=== PATIENT | male | born 1965 | race Caucasian/White ===

== ENCOUNTER 2016-03-27 18:30 | Inpatient (IN) | payer BC ==
[~2016-03-27] VITALS: Ht 190.5 cm; Wt 149.5 kg
[2016-03-27 19:30] LABS: BASOPHILS 0.1 % (0.0-2.0); EOSINOPHILS 1.1 % (0-7); HEMATOCRIT 40.8 % (42.0-54.0); HEMOGLOBIN 13.5 g/dL (13.5-17.5); IMMATURE GRANULOCYTES 0.2 % (0-5); LYMPHOCYTES 19.4 % (15-50); MCH 28.5 pg (26.0-34.0); MCHC 33.1 g/dL (31.0-37.0); MCV 86.1 fL (80.0-100.0); MEAN PLATELET VOLUME 8.7 fL (7.4-10.4); MONOCYTES 8.5 % (2-11); NEUTROPHILS 70.7 % (40-80); PLATELET COUNT 218 10x3/uL (130-400); RBC 4.74 10x6/uL (4.20-6.10); RDW 13.8 % (11.5-14.5); WBC 8.9 10x3/uL (4.8-10.8)
[2016-03-27 19:40] LABS: APTT 23.9 SECONDS (22.8-39.4); INR 1.04 (0.85-1.17); PROTIME 13.5 SECONDS (11.6-15.0)
[2016-03-27 19:43] LABS: HEMOGLOBIN A1C 6.5 % (4.8-6.0)
[2016-03-27 19:54] LABS: ALBUMIN 3.2 g/dL (3.4-5.0); ALKALINE PHOSPHATASE 58 U/L (46-116); ALT (SGPT) 33 U/L (10-68); CALC OSMOLALITY 278 mosm/kg (275-300); CALCIUM 9.5 mg/dL (8.5-10.1); CARBON DIOXIDE 27.7 mmol/L (21.0-32.0); CHLORIDE - SERUM 99 mmol/L (98-107); CREATININE - SERUM 1.7 mg/dL (0.6-1.3); GLUCOSE 95 mg/dL (74-106); POTASSIUM - SERUM 3.8 mmol/L (3.5-5.1); PROTEIN - SERUM 7.8 g/dL (6.4-8.2); SODIUM 138 mmol/L (136-145); UREA NITROGEN 20 mg/dL (7-18); eGFR NON AFRICAN AMERICAN 45 mL/min (90-120)
[2016-03-27 20:12] LABS: C-REACTIVE PROTEIN 1.9 mg/dL (0.0-0.9); CKMB 1.5 U/L (0.0-3.6); CREATINE KINASE 292 UL (21-232)
[2016-03-27] MEDS ORDERED: HYZAAR 100-25 T1 TAB PO (21:08)
[2016-03-27] MEDS ORDERED: NORVASC10 MG PO (21:08)
[2016-03-27] MEDS ORDERED: IBUPROFEN400 MG PO (21:15)
[2016-03-27] MEDS ORDERED: INDOCIN-SR75 MG PO (21:15)
--- NOTE | 2016-03-27 21:18 | NUR ---
RECEIVED PT TO FLOOR FROM ER VIA WHEELCHAIR. LEFT 2ND TOE REDNESS/SWELLING WITH QUARTER SIZE ULCER/WOUND WITH SMALL SEROSANG DRAINAGE. LLE +2 PITTING. BOTTOM OF RIGHT FOOT HAS LACERATION APPROX 1.5 LONG IN CALLOUS SKIN REDNESS AND SWELLING PRESENT. SCANT SEROSANG DRAINAGE OCCASIONAL FROM LACERATION. RLE +1 PITTING. ELEVATED FEET ON PILLOW. HISTORY AND HOME MEDS REVIEWED. COMPLETE ASSESSMENT PER FLOWSHEET.
[2016-03-28 02:46] VITALS: BP 143/92; BMI 41.2
[2016-03-28 05:42] LABS: BASOPHILS 0.2 % (0.0-2.0); EOSINOPHILS 2.7 % (0-7); HEMOGLOBIN 13.2 g/dL (13.5-17.5); IMMATURE GRANULOCYTES 0.2 % (0-5); MCH 28.4 pg (26.0-34.0); MCV 86.2 fL (80.0-100.0); MEAN PLATELET VOLUME 8.9 fL (7.4-10.4); MONOCYTES 11.1 % (2-11); NEUTROPHILS 63.8 % (40-80); PLATELET COUNT 203 10x3/uL (130-400); RBC 4.64 10x6/uL (4.20-6.10); RDW 13.9 % (11.5-14.5)
[2016-03-28 05:56] LABS: WBC 5.9 10x3/uL (4.8-10.8)
[2016-03-28 06:19] LABS: ANION GAP 11.9 mmol/L (8-16); CALCIUM 8.8 mg/dL (8.5-10.1); CARBON DIOXIDE 29.1 mmol/L (21.0-32.0)
[2016-03-28 06:31] LABS: CREATININE - SERUM 1.2 mg/dL (0.6-1.3)
[2016-03-28 06:57] LABS: ERYTHROCYTE SEDIMENTATION RATE 49 mm/hr (0-20)
--- NOTE | 2016-03-28 07:30 | NUR ---
REPORT RECEIVED FROM LOW VISION THERAPIST NURSE. CALL LIGHT IN REACH.
[2016-03-28 08:04] VITALS: BP 170/92
--- NOTE | 2016-03-28 09:33 | NUR ---
Patient Name: TRAY COVARRUBIAS Admission Status: ER Accout number: [id number] Admission Date: 03-27-2016 : 1965 Admission Diagnosis: Attending: THADDEUS Current LOS: 1 Anticipated DC Date: 03-31-2016 Planned Disposition: Home Primary Insurance: [employer] O Discharge Planning Comments: CM MET WITH PATIENT REGARDING D/C NEEDS AND PLANS. (PEGGY) AT BEDSIDE STATED SHE WILL DRIVE HIM HOME AT DISCHARGE. PATIENT STATED THEY HAVE A RAMP TO ENTER HOME AND NO STAIRS INSIDE. PATIENT IS INDEPENDENT WITH HIS CARE AND HAS NO DME AT HOME. PATIENTS PCP IS DR. MEHTA AND PHARMACY IS [facility] ON [address]. PATIENT DENIES NEEDS FOR HOME HEALTH. CM WILL CONTINUE TO FOLLOW PATIENT WITH D/C NEEDS AND PLANS. PCP DR. TYSON ALMANZAR ON [facility] [phone] PEGGY () [phone] Punch Operator: Lois Chavez Is the patient Alert and Oriented? Yes 0 * How many steps to enter\exit or inside your home? RAMP 0 * PCP DR. MEHTA 0 * Pharmacy [facility] ON [address] 0 * Preadmission Environment Home with Family 0 * ADLs Independent 0 * Equipment None 0 * List name and contact numbers for known caregivers / representatives who currently or will assist patient after discharge: PEGGY () [phone] * Community resources currently utilized None 0 * Additional services required to return to the preadmission environment? Yes 0 * Can the patient safely return to the preadmission environment? Yes 0 * Has this patient been hospitalized within the prior 30 days at any hospital? No 0 Grand Total: 0
--- NOTE | 2016-03-28 09:40 | NUR ---
ASSESSMENT COMPLETED. AM MEDS ADMINISTERED PER MAYTE GIL. CALL LIGHT IN REACH. IN ROOM. WILL CONTINEU WITH PLAN OF CARE.
--- NOTE | 2016-03-28 10:23 | NUR ---
[place] AND [place] PO. FAMILY IN ROOM. CALL LIGHT IN REACH.
--- NOTE | 2016-03-28 11:53 | NUR ---
WATCHING TV QUIETLY AT PRESENT DENIES ANY NEEDS IV PATENT IN RFA.
[2016-03-28 12:35] VITALS: BP 160/90
--- NOTE | 2016-03-28 13:11 | HP ---
PATIENT: TRAY COVARRUBIAS MEDICAL RECORD: [id number] ACCOUNT: [id number] LOCATION:D.MS [address] : [birth year] ADMISSION DATE: 03/27/16 HISTORY AND PHYSICAL EXAMINATION DATE OF ADMISSION: 03/27/2016 CHIEF COMPLAINT: Pain, swelling and redness to the left second toe. HISTORY OF PRESENT ILLNESS: This is a 50-year-old white male who states he stepped on something in his yard 2 days ago and he was barefoot. He does not know what he stepped on. He states he has peripheral neuropathy of his feet. He was soaking it in vinegar and Epsom salt. 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 He presented to the ER and he has a large wound on the bottom of his left second toe. The toe was swollen and red. He is admitted for IV antibiotics and further treatment of this. PAST MEDICAL AND SURGICAL HISTORY: Hypertension, history of low back pain. He has a history of peripheral neuropathy, history of gout. He was admitted to the hospital in August 2012 with cellulitis and a large open wound to the left great toe. At that time, he was treated with IV antibiotics and deep I&D by Dr. Kearney and that toe actually healed up. His hemoglobin A1c then was 5.9. He is followed by [facility]RI[facility] at [facility], and he sees her about once a year. HOME MEDICATIONS: Amlodipine 10 mg a day, losartan/HCTZ 100/25 once a day, takes ibuprofen as needed and indomethacin twice a day as needed for pains. ALLERGIES: None known. SOCIAL HISTORY: He is and works as a basket turner. HABITS: He smokes less than a pack of cigarettes in a week's time. He drinks about 18 beers in a week's time. FAMILY HISTORY: Father at 71. He had heart disease, hypertension, diabetes. Mother is alive with hypertension, sister is alive with hypertension. REVIEW OF SYSTEMS: GENERAL: No major weight changes. He is obese. HEENT: No particular sinus or allergy problems. RESPIRATORY: No diagnosis of emphysema or asthma. CARDIAC: No history of coronary artery disease. GASTROINTESTINAL: Denies diarrhea, constipation or reflux. GENITOURINARY: No significant problems there. MUSCULOSKELETAL: He has various joint aches and pains in his back, elbows and knees. NEUROLOGIC: He has no seizures or migraine headaches. She does have peripheral neuropathy. PSYCHIATRIC: No depression or melancholia. PHYSICAL EXAMINATION: VITAL SIGNS: Today in the ER, he is afebrile. Vital signs were stable. HEENT: Grossly within normal limits. HISTORY AND PHYSICAL [id number] TRAY COVARRUBIAS NECK: Supple. No JVD or bruit. HEART: Regular rate and rhythm without murmur. LUNGS: Fairly clear. ABDOMEN: Obese, nontender. EXTREMITIES: Trace to 1+ lower extremity edema. Examination of the left foot second toe shows a large 1.5 cm open wound at the bottom of the distal second toe. The second toe is erythematous and edematous. He really has no pain there due to neuropathy. Dorsalis pedis pulse is 2+. LABORATORY DATA: CBC with a white count of 8900, hemoglobin 13.5, hematocrit 40.8. Basic metabolic panel is all okay. LFTs were okay. INR 1.04. Hemoglobin A1c is elevated at 6.5 indicating he does have underlying diabetes. CK 292, CK-MB 1.5. C-reactive protein 1.5. ASSESSMENT: 1. Cellulitis with open wound. 2. Diabetes, new diagnosis. 3. Hypertension. 4. Peripheral neuropathy. PLAN: IV antibiotics. General surgery has been consulted from the ER. Other tests and procedures as warranted. TRANSINT:[id number] Voice Confirmation ID: [id number] DOCUMENT ID: [id number] MEERA CASTELLON MD at 1311 CC: [id number] DICTATION DATE: 03/27/162314 AUTOMATIC PATTERN EDGER: 03/27/16 2357 ADM IN [place] [id number] [place] [address]
--- NOTE | 2016-03-28 13:30 | NUR ---
AM MEDS CHANGED TO 0600 PER PATIENT REQUEST.
--- NOTE | 2016-03-28 15:39 | NUR ---
TOE CULTURED AND SAMPLE SEN TO LAB.
[2016-03-28 15:53] VITALS: BP 173/87
--- NOTE | 2016-03-28 17:59 | NUR ---
VANCOMYCIN IVPB PER ORDER. CALL LIGHT IN REACH.
--- NOTE | 2016-03-28 18:01 | NUR ---
NO CHANGES IN INITIAL ASSESSMENT. CALL LIGHT IN REACH. STILL REFUSES SCDs. WILL CONTINUE WITH PLAN OF CARE.
[2016-03-28 20:19] VITALS: BP 132/86
--- NOTE | 2016-03-28 21:09 | NUR ---
ASSESSMENT COMPLETED PER MAR, NO ACUTE DISTRESS NOTED, MEDS GIVEN PER MAR, YANG WELL, DENIES FURTHER NEEDS AT THIS TIME, SR'S UP X2, CL IN REACH
--- NOTE | 2016-03-28 23:54 | NUR ---
RESTING WITH EYES CLOSED, SNORING RESP, NO DISTRESS NOTED, CL IN REACH
[2016-03-29 05:27] LABS: BASOPHILS 0.2 % (0.0-2.0); EOSINOPHILS 3.4 % (0-7); HEMATOCRIT 40.2 % (42.0-54.0); HEMOGLOBIN 13.3 g/dL (13.5-17.5); IMMATURE GRANULOCYTES 0.2 % (0-5); LYMPHOCYTES 21.2 % (15-50); MCH 28.5 pg (26.0-34.0); MCHC 33.1 g/dL (31.0-37.0); MCV 86.1 fL (80.0-100.0); MEAN PLATELET VOLUME 8.8 fL (7.4-10.4); PLATELET COUNT 197 10x3/uL (130-400); RBC 4.67 10x6/uL (4.20-6.10); RDW 13.8 % (11.5-14.5); WBC 5.3 10x3/uL (4.8-10.8)
[2016-03-29 05:41] LABS: CALC OSMOLALITY 278 mosm/kg (275-300); CALCIUM 9.8 mg/dL (8.5-10.1); CARBON DIOXIDE 31.4 mmol/L (21.0-32.0); CHLORIDE - SERUM 101 mmol/L (98-107); CREATININE - SERUM 1.1 mg/dL (0.6-1.3); GLUCOSE 115 mg/dL (74-106); POTASSIUM - SERUM 4.3 mmol/L (3.5-5.1); SODIUM 138 mmol/L (136-145); UREA NITROGEN 18 mg/dL (7-18); eGFR NON AFRICAN AMERICAN 75 mL/min (90-120)
[2016-03-29 10:06] VITALS: BP 147/87
--- NOTE | 2016-03-29 12:13 | NUR ---
FAMILY AT SIDE.PT REMAINS WITHOUT DISTRESS.CALL LIGHT IN REACH
[2016-03-29 13:01] VITALS: BP 124/73
--- NOTE | 2016-03-29 14:24 | NUR ---
FAMILY AT BEDSIDE.PT WITHOUT DISTRESS.TELEMETRY DCD,PT DECLINED.DENIES NEEDS.CALL LIGHT IN REACH
--- NOTE | 2016-03-29 16:48 | NUR ---
REMAINS WITHOUT DISTRESS.WITHOUT NEEDS.MONITOR
--- NOTE | 2016-03-29 18:21 | NUR ---
REMAINS WITHOUT CHANGE.CONT PLAN OF CARE
[2016-03-29 18:48] VITALS: BP 150/74
--- NOTE | 2016-03-29 20:13 | NUR ---
ASSESSMENT COMPLETED, NO ACUTE DISTRESS NOTED, MEDS GIVEN PER MAR, YANG WELL, DENIES NEEDS, SR'S UP X2, CL IN REACH, WILL MONITOR
[2016-03-29 20:28] VITALS: BP 125/76
--- NOTE | 2016-03-29 23:20 | NUR ---
RESTING WITH EYES CLOSED, SNORING RESP, NO DISTRESS NOTED, SR'S UP X2, CL IN REACH
--- NOTE | 2016-03-30 03:24 | NUR ---
RESTING WITH EYES CLOSED, RESP WITH EASE, NO DISTRESS NOTED, CL IN REACH
--- NOTE | 2016-03-30 05:33 | NUR ---
IV TO R FOREARM INFILTRATED, DC'D WITH CATH INTACT, RESITED IN L HAND WITH 20 G X1 ATTEMPT, YANG WELL, CL IN REACH
[2016-03-30 05:34] LABS: BASOPHILS 0.4 % (0.0-2.0); EOSINOPHILS 3.8 % (0-7); HEMATOCRIT 40.4 % (42.0-54.0); HEMOGLOBIN 13.2 g/dL (13.5-17.5); IMMATURE GRANULOCYTES 0.2 % (0-5); LYMPHOCYTES 23.9 % (15-50); MCH 28.2 pg (26.0-34.0); MCHC 32.7 g/dL (31.0-37.0); MCV 86.3 fL (80.0-100.0); MONOCYTES 11.6 % (2-11); NEUTROPHILS 60.1 % (40-80); PLATELET COUNT 209 10x3/uL (130-400); RBC 4.68 10x6/uL (4.20-6.10); RDW 13.8 % (11.5-14.5); WBC 5.6 10x3/uL (4.8-10.8)
[2016-03-30 05:55] LABS: ANION GAP 9.9 mmol/L (8-16); CALCIUM 8.8 mg/dL (8.5-10.1); CREATININE - SERUM 1.3 mg/dL (0.6-1.3); POTASSIUM - SERUM 3.9 mmol/L (3.5-5.1)
--- NOTE | 2016-03-30 07:30 | NUR ---
RECIEVED PT DURING WALKING ROUNDS. PT RESTING COMFORTABLY IN BED WITH NO COMPLAINTS OF PAIN OR DISCOMFORT AT THIS TIME. ASSESSMENT DONE PER FLOWSHEET. BED IN LOW POSITION AND CALL LIGHT WITHIN REACH. WILL CONTINUE TO MONITOR.
[2016-03-30 08:14] VITALS: BP 154/86
--- NOTE | 2016-03-30 08:39 | NUR ---
NEWS PAPER TO PATIENT.HE IS WITHOUT DISTRESS.CALL LIGHT IN REACH
--- NOTE | 2016-03-30 09:35 | NUR ---
SPOKE WITH DR. CAMPA ABOUT DRESSING LESIONS ON PTS FEET. WILL DRESS WHEN MEDICATION IS AVAIABLE FROM PHARMACY. BED IN LOW POSITION AND CALL LIGHT WITHIN REACH.
--- NOTE | 2016-03-30 11:25 | NUR ---
DRESSING PLACED ON BALL OF RIGHT FOOT AND LEFT SECOND TOE. BED IN LOW POSITION AND CALL LIGHT WITHIN REACH. WILL CONTINUE TO MONITOR.
[2016-03-30 12:12] VITALS: BP 143/81
[2016-03-30 15:40] VITALS: BP 139/85
--- NOTE | 2016-03-30 19:51 | NUR ---
ASSESSMENT COMPLETED, NO ACUTE DISTRESS NOTED, DENIES NEEDS AT THIS TIME, CL IN REACH
--- NOTE | 2016-03-30 19:52 | NUR ---
DGS TO 2ND TOE ON L FOOT AND HEEL ON R FOOT CHANGED, BOTH CLEANSED WITH WOUND CLEANSER, NEOSPORIN APPLIED, COVERED WITH GAUZE, SECURED WITH TAPE, YANG WELL
[2016-03-30 20:28] VITALS: BP 142/84
--- NOTE | 2016-03-30 21:20 | NUR ---
MEDS GIVEN PER MAR, YANG WELL, DENIES NEEDS , CL IN REACH
--- NOTE | 2016-03-30 23:52 | NUR ---
RESTING WITH EYES CLOSED, SNORING RESP, NO DISTRESS NOTED, CL IN REACH
--- NOTE | 2016-03-31 05:24 | NUR ---
MEDS GIVEN PER MAR, YANG WELL, DENIES PAIN OR NEEDS, CL IN REACH
[2016-03-31 06:22] LABS: BASOPHILS 0.2 % (0.0-2.0); EOSINOPHILS 2.9 % (0-7); HEMATOCRIT 41.5 % (42.0-54.0); HEMOGLOBIN 13.4 g/dL (13.5-17.5); IMMATURE GRANULOCYTES 0.2 % (0-5); MCHC 32.3 g/dL (31.0-37.0); MCV 86.8 fL (80.0-100.0); MEAN PLATELET VOLUME 8.9 fL (7.4-10.4); MONOCYTES 12.2 % (2-11); NEUTROPHILS 59.5 % (40-80); PLATELET COUNT 197 10x3/uL (130-400); RBC 4.78 10x6/uL (4.20-6.10); RDW 13.5 % (11.5-14.5); WBC 5.5 10x3/uL (4.8-10.8)
[2016-03-31 06:57] LABS: ANION GAP 10.8 mmol/L (8-16); CALCIUM 9.3 mg/dL (8.5-10.1); CARBON DIOXIDE 32.4 mmol/L (21.0-32.0); CREATININE - SERUM 1.2 mg/dL (0.6-1.3); POTASSIUM - SERUM 4.2 mmol/L (3.5-5.1)
--- NOTE | 2016-03-31 07:20 | NUR ---
WALKING ROUNDS,WITHOUT DISTRESS.CALL LIGHT IN REACH
--- NOTE | 2016-03-31 09:00 | NUR ---
ASSESSMENT PER FLOW SHEET.PT WITHOUT DISRESS.CALL LIGHT IN REACH
[2016-03-31 09:23] VITALS: BP 150/100
[2016-03-31 12:53] VITALS: Ht 190.5 cm; Wt 149.5 kg
[2016-03-31 12:57] VITALS: BP 144/84
[2016-03-31] MEDS ORDERED: VIBRAMYCIN 100100 MG PO (13:39)
--- NOTE | 2016-03-31 14:28 | NUR ---
NUTRITION MONITORING & EVAL PROVIDED PT WITH BASIC DIABETIC DIET INFORMATION. STRESSED NO CONCENTRATED SWEETS. RD FOLLOWING
--- NOTE | 2016-03-31 15:32 | NUR ---
WOUND CARE CONSULT: PT HAS WOUND ON HIS LEFT FOOT PAD OF #2 TOE. IT MEASURES 3CM X 3CM X 0.5CM X 0.5CM FROM 12-12 OCLOCK. PERIWOUND IS THICK WITH CALLOUS. WOUND BED IS PALE PINK, MOIST. CENTER IS OPEN AND BONE IS EXPOSED. PT STATES HE IS A "BORDER-LINE" DIABETIC WITH NEUROPATHY OF FEET. CLEANED WELL AND APPLIED MAXORB AG TO WOUND BED. COVERED TO PROTECT AND SECURE WITH 4X4S. SPOKE WITH DR. CASTELLON ABOUT REFERRAL TO [facility]. APPT WILL BE MADE ON DISCHARGE. PT ALSO HAS A WOUND ON RIGHT PLANTAR FOOT MEASURING 1CM X 4CM X ESCHAR.. HE STATES IT "SPLITS" OCCASIONALLY. RECOMMEND LEAVING OPEN TO AIR AT THIS TIME UNTIL HE CAN BE SEEN BY WOUND CLINIC. INSTRUCTED PT ON WOUND CARE/SKIN CARE AND DISCUSSED GOING TO WOUND CLINIC ON DISCHARGE. HE VOICED UNDERSTANDING.
--- NOTE | 2016-03-31 15:51 | NUR ---
CM REASSESSMENT NOTE: PATIENTS IS DRIVING HIM HOME TODAY AT DISCHARGE. PATIENT HAS DENIED NEEDS FOR HOME HEALTH.
--- NOTE | 2016-03-31 15:52 | NUR ---
IV DCD WITH CATH INTACT.
[2016-03-31 16:10] VITALS: BP 136/82
--- NOTE | 2016-03-31 17:15 | NUR ---
DISCHARGE INSTRUCTIONS,STATES UNDERSTANDING. HERE TO DRY CLEANING COUNTER CLERK.LEFT UNIT IN WHEELCHAIR WITH AIR AND WATER TESTER FOR TRANSPORT HOME
== END 2016-03-31 17:15 | disposition home or self-care (01) | DRG 605 ==
LOC: D.ER 18:30 → D.MS 20:07 → D.SDCHOLD 03-28 15:34 → D.MS 03-28 15:34
PROVIDERS: Emergency Medicine; ADMIT Family Medicine
DX: S91.119A Laceration without foreign body of unspecified toe without damage to nail, initial encounter (principal); F17.203 Nicotine dependence unspecified, with withdrawal; L03.032 Cellulitis of left toe; E11.42 Type 2 diabetes mellitus with diabetic polyneuropathy; I10 Essential (primary) hypertension; X58.XXXA Exposure to other specified factors, initial encounter

== ENCOUNTER → 2016-05-28 12:48 | Outpatient (CLI) | payer BC ==
[2016-03-31 12:53] VITALS: BMI 41.1
[~2016-05-28 12:48] MED LIST: HYZAAR 100-25 T1 TAB PO; IBUPROFEN400 MG PO; INDOCIN-SR75 MG PO; NORVASC10 MG PO; VIBRAMYCIN 100100 MG PO
== END | disposition home or self-care (01) ==
LOC: D.LABREF 12:48
DX: L97.529 Non-pressure chronic ulcer of other part of left foot with unspecified severity (principal)

== ENCOUNTER 2017-06-03 16:51 | Emergency (ER) | payer BC ==
[2016-03-31 12:53] VITALS: BMI 41.1
== END 2017-06-03 22:15 | disposition home or self-care (01) ==
LOC: D.ER 16:51
DX: L03.032 Cellulitis of left toe (principal); L97.529 Non-pressure chronic ulcer of other part of left foot with unspecified severity; I10 Essential (primary) hypertension; F17.200 Nicotine dependence, unspecified, uncomplicated

== ENCOUNTER 2019-02-18 17:45 | Inpatient (IN) | payer OTHER ==
[~2019-02-18] VITALS: Ht 190.5 cm; Wt 152.4 kg
[2019-02-18 18:15] VITALS: BP 147/80
--- NOTE | 2019-02-18 18:31 | NUR ---
PT HAS 101.0 FEVER. PRN TYLENOL GIVEN AT THIS TIME.
--- NOTE | 2019-02-18 19:15 | NUR ---
PATIENT ALERT AND ORIENTED WHEN ENTERING THE ROOM. PATIENT HAS SEVERAL FAMILY MEMBERS AT BEDSIDE. SPOKE AT GREAT LENGTH WITH PATIENT ABOUT PODIATRY AND THAT DR. LONGORIA HAS BEEN CONSULTED ON THE CASE. PATIENT VERBALIZES UNDERSTANDING. STATES PAIN IS TOLERABLE AT THIS POINT. PATIENT APPEARS TO START SWEATING DURING ASSESSMENT. TEMPERATURE THAT WAS ASSESSED ON PRIOR SHIFT AND TYLENOL ADMINSTERED, IS STARTING TO BREAK. PATIENT HAS BILATERAL FOOT WOUNDS IN THE LOWER EXTREMETIES THOUGH THE LEFT AND FOOT PRESENT WITH REDNESS AND SWELLING. AN OPEN WOUND TO THE BOTTOM OF THE GREAT TOE NOTED ON THE LEFT FOOT. THE RIGHT FOOT HAS DARKENED AREA OF TISSUE ON GREAT TOE BUT IS NOT OPEN AT THIS TIME AND NO SWELLING OR REDNESS NOTED TO THE LEG. PATIENT STATES HE STILL AMBULATES BUT DID NOT GET OUT OF BED AT THIS TIME. PATIENT DOES NOT HAVE AN IV. DISCUSSED COMING UP ABX THERAPY WITH PATIENT. HE VERBALIZES UNDERSTANDING. DENIES FURTHER NEEDS AT THIS TIME. CALL LIGHT IN REACH. BED IS IN LOWEST POSITION. CPOC.
[2019-02-18 20:00] VITALS: BP 147/89
--- NOTE | 2019-02-18 20:10 | NUR ---
LEFT FOREARM IV. 20 G. X1 ATTEMPT.
[2019-02-18 20:46] VITALS: BP 147/80; BMI 42.0
[2019-02-18 23:57] VITALS: BP 177/93
--- NOTE | 2019-02-19 00:15 | NUR ---
PATIENT COMPLAINING OF PAIN IN LOWER EXTREMETIES NOT RELIEVED BY TYLENOL. PATIENT BLOOD PRESSURE INCREASING WELL. PAGED DR. CASTELLON.
[2019-02-19 00:33] LABS: APPEARANCE HAZY (CLEAR); BACTERIA NONE SEEN /hpf (NEGATIVE); BILIRUBIN NEGATIVE (NEGATIVE); COLOR YELLOW (YELLOW); GLUCOSE NEGATIVE (NEGATIVE); GRANULAR CAST OCC /lpf (NONE SEEN); KETONE NEGATIVE (NEGATIVE); MUCUS <1+ /lpf (NONE SEEN); NITRITE NEGATIVE (NEGATIVE); PROTEIN 1+ mg/dL (NEGATIVE); RED CELLS - URINE 0-5 /hpf (0-5); UROBILINOGEN NORMAL (NORMAL); WHITE CELLS - URINE 0-5 /hpf (NEGATIVE)
[2019-02-19 00:34] LABS: AMORPHOUS SEDIMENT <1+ /lpf (NONE SEEN)
--- NOTE | 2019-02-19 01:14 | NUR ---
RESTING COMFORTABLY AT THIS TIME WITH NO SIGNS OR SYMPTOMS OF DISTRESS NOTED. CALL LIGHT AND URINAL REMAIN IN REACH OF PATIENT. CPOC.
[2019-02-19 04:00] VITALS: BP 165/93
[2019-02-19 07:49] VITALS: BP 141/94
--- NOTE | 2019-02-19 07:50 | NUR ---
PT RESTING QUIETLY IN BED. RESP EVEN AND UNLABORED. PT REPORTS PAIN 10/10 AT THIS TIME. DISCUSSED NEXT TIME PAIN MEDICATION CAN BE ADMINISTERED PER MD ORDERS. PT VOICES UNDERSTANDING. SALINE LOC TO LEFT FOREARM. SITE WITHOUT REDNESS OR EDEMA. REDNESS AND EDEMA NOTED TO BILAT LOWER EXTREMITIES. DENIES FURTHER NEEDS AT THIS TIME. CL WITHIN REACH. ENCOURAGED TO CALL WITH NEEDS. CONTINUE POC
[2019-02-19 08:41] VITALS: Ht 190.5 cm; Wt 152.4 kg
[2019-02-19 12:00] VITALS: BP 142/82
[2019-02-19 16:11] VITALS: BP 144/81
--- NOTE | 2019-02-19 19:30 | NUR ---
PATIENT ALERT AND ORIENTED. REQUESTING PAIN MEDICATION AT THIS TIME. PATIENT ALSO DISCUSSED WITH THIS NURSE THAT DR. CASTELLON STATED HE WOULD BE STARTING AN ADDITIONAL ABX THIS SHIFT BUT NO ORDERS. PAGED DR. CASTELLON FOR ADVISING.
--- NOTE | 2019-02-19 19:45 | NUR ---
DR. CASTELLON RETURNED PAGE AND PROVIDED ORDERS.
[2019-02-19 20:00] VITALS: BP 138/69
--- NOTE | 2019-02-19 23:47 | HP ---
PATIENT: TRAY COVARRUBIAS MEDICAL RECORD: [id number] ACCOUNT: [id number] LOCATION:D.MS [address] : 63 ADMISSION DATE: 02/18/19 PCP: MEERA CASTELLON MD HISTORY AND PHYSICAL EXAMINATION DATE OF ADMISSION: 02/18/2019 CHIEF COMPLAINT: Fever, nausea, vomiting times 3 days, increased redness in the left lower extremity and a diabetic wound on both great toes. HISTORY OF PRESENT ILLNESS: This is a 53-year-old white male followed by Nhung Foy, nurse practitioner at [facility]. He has a past history of diabetes with actually good control with a hemoglobin A1c of 6.1 in the last couple of months. He is morbidly obese. He has severe peripheral neuropathy, he has had a long history of diabetic foot ulcers. He has been to Dr. Forrest. He has been to [facility] wound clinic. He has been to Dr. Kearney, but has not been seeing anybody in a couple of months. He has chronic lower extremity edema and again with neuropathy, cannot feel his feet and legs. He comes in today with above symptoms and cellulitis to the left lower extremity. He has a large ulcer on the bottom of his left great toe and an ulcer on the right great toe as well. In our office, his white blood cell count was 12,790. His BUN and creatinine were 12 and 1.12 respectively. Glucose was 104. With his symptoms, he is directly admitted for IV antibiotics and will ask ortho to see him about his wound on his toe to see if it needs anything further. PAST MEDICAL HISTORY: Hypertension, diabetes with peripheral neuropathy, gout, and morbid obesity. PAST MEDICAL AND SURGICAL HISTORY: He has had toe surgery back in 2013 for infections. DRUG ALLERGIES: None known. HOME MEDICATIONS: Allopurinol 300 mg once a day, metformin 500 mg once a day, amlodipine 10 mg once a day, losartan 100 mg once a day, metoprolol ER 25 once a day. He has been on hydrochlorothiazide in the past, but not right now. SOCIAL HISTORY: He is . 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 I am not sure if he is working right now or not. HABITS: He smokes a pack of cigarettes in a week's time. Denies alcohol or drug use. FAMILY HISTORY: Unknown. REVIEW OF SYSTEMS: GENERAL: He has morbid obesity, which has not changed anytime recently. HEENT: No particular sinus or allergy problems. RESPIRATORY: No history of emphysema. CARDIAC: No history of heart disease. GASTROINTESTINAL: He has heartburn. GENITOURINARY: No significant problems there. MUSCULOSKELETAL: Has low back pain. NEUROLOGIC: No migraines or seizures. HISTORY AND PHYSICAL [id number] TRAY COVARRUBIAS INTEGUMENT: Again he has had ulcers on his feet. PSYCHIATRIC: Denies depression or melancholia. PHYSICAL EXAMINATION: VITAL SIGNS: Temperature 100.9, pulse 117, respirations 17, blood pressure 147/89, O2 sat 94%. GENERAL: He is a morbidly obese white male. He does not appear to be in acute distress. HEENT: Grossly within normal limits. NECK: Supple. No JVD or bruit. HEART: Mild tachycardia. LUNGS: Fairly clear. ABDOMEN: Morbidly obese, soft, nontender. EXTREMITIES: He has 3+ lower extremity edema. He has erythema to his left knee. Examination of the foot shows a large open ulcer that is dry on the bottom of the great toe. A CBC done in our office showed a white count of 12,790, hemoglobin 12.6. Basic metabolic panel: Sodium 133, potassium 3.7, chloride 96, CO2 26.3, BUN 12, creatinine 1.12, glucose 104, calcium 9.8. Liver functions are okay. Total protein is elevated at 9.2. ASSESSMENT: 1. Recurrent cellulitis left lower extremity. 2. Diabetic ulcer. 3. Hypertension. 4. Morbid obesity. PLAN: Start IV antibiotics. We will consult wound care, consult orthopedics. Other tests or procedures as warranted. TRANSINT:[id number] Voice Confirmation ID: [id number] DOCUMENT ID: [id number] MEERA CASTELLON MD at 2347 CC: [id number] DICTATION DATE: 02/18/192010 BRIDGE INSTRUCTOR: 02/18/19 2146 ADM IN [place] [id number] [place] [id number]
[2019-02-20 00:25] VITALS: BP 156/88
[2019-02-20 04:00] VITALS: BP 146/83
--- NOTE | 2019-02-20 07:35 | NUR ---
ALERT AND ORIENTED. LUNGS CLEAR BILATERALLY. HEART SOUNDS S1 AND S2 HEARD IN ALL DC. BOWEL SOUNDS ACTIVE X 4. DRSGS C/D/I TO BILATERAL FEET. IV TO LFA PATENT WITHOUT REDNESS. DENIES NEEDS. BED LOW. CALL TA AND PERSONAL ITEMS IN REACH. WILL CONTINUE TO MONITOR.
[2019-02-20 07:43] VITALS: BP 133/79
--- NOTE | 2019-02-20 10:15 | NUR ---
DR LONGORIA IN ROOM TALKING TO PATIENT. WILL CONTINUE TO MONITOR.
--- NOTE | 2019-02-20 12:01 | NUR ---
RESTING IN BED. DENIES NEEDS. WILL CONTINUE TO MONITOR.
[2019-02-20 12:48] VITALS: BP 138/69
--- NOTE | 2019-02-20 16:46 | NUR ---
RESTING IN BED. FAMILY AT BEDSIDE. DENIES NEEDS. WILL CONTINUE TO MONITOR.
[2019-02-20 16:47] VITALS: BP 126/69
--- NOTE | 2019-02-20 18:05 | NUR ---
RESTING IN BED. DENIES NEEDS. CALL TA AND PERSONAL ITEMS IN REACH.
--- NOTE | 2019-02-20 19:58 | NUR ---
temp of 101.5 tylenol 500mg per orders.
[2019-02-20 20:11] VITALS: BP 113/74
[2019-02-21 00:15] VITALS: BP 118/68
--- NOTE | 2019-02-21 02:03 | NUR ---
RESTING IN BED WITH NO STATED OR NOTED NEEDS AT THIS TIME. CALL LIGHT IN REACH.NO S/S OF DISTRESS
[2019-02-21 04:31] VITALS: BP 174/92
[2019-02-21 05:58] LABS: BASOPHILS 0.2 % (0-2); EOSINOPHILS 0.4 % (0-7); HEMATOCRIT 31.7 % (42.0-54.0); HEMOGLOBIN 10.4 g/dL (13.5-17.5); IMMATURE GRANULOCYTES 0.5 % (0-5); LYMPHOCYTES 15.5 % (15-50); MCH 27.3 pg (26.0-34.0); MCHC 32.8 g/dL (31.0-37.0); MCV 83.2 fL (80.0-100.0); MEAN PLATELET VOLUME 8.9 fL (7.4-10.4); MONOCYTES 11.3 % (2-11); NEUTROPHILS 72.1 % (40-80); PLATELET COUNT 214 10x3/uL (130-400); RBC 3.81 10x6/uL (4.20-6.10); RDW 15.9 % (11.5-14.5); WBC 9.9 10x3/uL (4.8-10.8)
[2019-02-21 06:20] LABS: ANION GAP 10.8 mmol/L (8-16); CARBON DIOXIDE 27.6 mmol/L (21.0-32.0); CREATININE - SERUM 1.1 mg/dL (0.6-1.3); POTASSIUM - SERUM 3.4 mmol/L (3.5-5.1)
--- NOTE | 2019-02-21 06:25 | NUR ---
tEMP 98.7
[2019-02-21 07:28] VITALS: BP 133/80
--- NOTE | 2019-02-21 07:45 | NUR ---
ALERT AND ORIENTED. LUNGS CLEAR BILATERALLY. HEART SOUNDS S1 AND S2 HEARD IN ALL DC. BOWEL SOUNDS ACTIVE X 4. DRSGS TO BILATERAL FEET C/D/I. IV TO LFA PATENT WITHOUT REDNESS. DENIES NEEDS. BED LOW. CALL TA AND PERSONAL ITEMS IN REACH. WILL CONTINUE TO MONITOR.
[2019-02-21 11:48] VITALS: BP 146/83
--- NOTE | 2019-02-21 14:45 | NUR ---
RESTING IN BED. DENIES NEEDS. WILL CONTINUE TO MONITOR.
--- NOTE | 2019-02-21 16:27 | NUR ---
PATIENT TEMP 102.8. BLOOD CULTURES ORDERED.
--- NOTE | 2019-02-21 16:30 | NUR ---
SPOKE WITH LAB WHO STATES WAIT TO GIVE ABX UNTIL AFTER BLOOD CULTURES BUT TYLENOL OK TO GIVE.
--- NOTE | 2019-02-21 17:45 | NUR ---
TEMP STILL 102.5. CALLING PHYSICIAN GAMBRELER.
--- NOTE | 2019-02-21 17:48 | NUR ---
DR MEHTA PAGED BY ANSWERING SERVICE. WAITING CALL BACK.
--- NOTE | 2019-02-21 17:50 | NUR ---
COOL RAGS PLACED ON PATIENT'S HEAD.
--- NOTE | 2019-02-21 18:01 | NUR ---
SPOKE WITH DR MEHTA TO NOTIFY OF TEMP 102.5. STATES PUTTING IN ORDERS FOR CXR AND URINE CULTURE. SUPPLIES IN ROOM FOR URINE CULTURE AND EDUCATION PROVIDED. AT BEDSIDE.
[2019-02-21 20:54] VITALS: BP 151/84
[2019-02-21 21:50] LABS: APPEARANCE CLEAR (CLEAR); BACTERIA FEW /hpf (NEGATIVE); BILIRUBIN NEGATIVE (NEGATIVE); COLOR YELLOW (YELLOW); GLUCOSE NEGATIVE (NEGATIVE); KETONE NEGATIVE (NEGATIVE); NITRITE NEGATIVE (NEGATIVE); PROTEIN TRACE mg/dL (NEGATIVE); RED CELLS - URINE 0-5 /hpf (0-5); SPECIFIC GRAVITY 1.015 (1.005-1.020); UROBILINOGEN NORMAL (NORMAL); WHITE CELLS - URINE OCC /hpf (NEGATIVE)
[2019-02-22 01:10] VITALS: BP 139/57
[2019-02-22 05:11] VITALS: BP 145/87
--- NOTE | 2019-02-22 07:30 | NUR ---
REC'D IN BED AWAKE AND ALERT. RESP EVEN AND UNLABORED WITH NO DISTRESS NOTED OR VOICED. CAN EXPRESS NEEDS AND WANTS. ASSESSMENT COMPLETED. C/L IN REACH AT BEDSIDE.
[2019-02-22 09:05] VITALS: BP 146/80
--- NOTE | 2019-02-22 09:28 | MORECARE ---
CASE MANAGEMENT DISCHARGE SUMMARY PATIENT: TRAY COVARRUBIAS MICHELLE UNIT: [id number] ADM DATE: 02/18/19 AGE: 53 : 63 SEX: M ROOM/BED: D.2204 AUTHOR: DAGMAR ZHANG PHYSICIAN: REFERRING PHYSICIAN: MEERA CASTELLON MD DATE OF SERVICE: 02/22/19 Discharge Plan Patient Name: TRAY COVARRUBIAS Facility: [facility]:[place] : 1965 Planned Disposition: Home or Self Care Anticipated Discharge Date: Discharge Date: Expected LOS: Initial Reviewer: [email or web address] Initial Review Date: 02/18/2019 Generated: 02/22/19 10:27 am Comments DCP- Discharge Planning Updated by [email or web address]: Ayanna Hennessy on 02/22/19 8:[address] Patient Name: TRAY COVARRUBIAS Admission Status: Elective Accout number: [id number] Admission Date: 02-18-2019 : 1965 Admission Diagnosis: Attending: MEERA CASTELLON Current LOS: 4 Anticipated DC Date: Planned Disposition: Home or Self Care Primary Insurance: [facility] Discharge Planning Comments: CM met with patient to complete initial dc planning assessment. CM educated patient on the CM role and verbal consent given by patient to complete assessment. Patient lives at home with his where he is independent with his care. At discharge patient plans to return home and feels this is a safe discharge. CM discussed availability of home health, rehab services, and medical equipment. He does not want HH, he said he has been dealing with this for some time now. His will be his car pick up driver home. Patient denied known discharge needs at this time. CM will continue to follow and will assist as needed with dc plans/needs Optical Dispenser: Ayanna Hennessy DCPIA - Discharge Planning Initial Assessment Updated by [email or web address]: Ayanna Hennessy on 02/22/19 9:22 am * Is the patient Alert and Oriented? Yes * How many steps to enter\exit or inside your home? * PCP RAVINDER/JOHNNIE BONILLA * Pharmacy [facility] [address] * Preadmission Environment Home with Family * ADLs Independent * Equipment None * List name and contact numbers for known caregivers / representatives who currently or will assist patient after discharge: LYNETTE () [phone] * Verbal permission to speak to the caregivers and representatives has been obtained from the patient. N/A * Community resources currently utilized None * Additional services required to return to the preadmission environment? No * Can the patient safely return to the preadmission environment? Yes * Has this patient been hospitalized within the prior 30 days at any hospital? No Patient Name: TRAY COVARRUBIAS Page [phone] at 0928 All edits/amendments must be made on the electronic document DICTATION DATE: 02/22/19926 TRUCK RENTAL CLERK: AUREA 02/22/19926 RPT#: [id number] [place] DATE: STATUS: ADM IN [facility] [address] [place] [address] END OF REPORT
--- NOTE | 2019-02-22 10:48 | NUR ---
NUTRITION F/U PT TOLERATING DIABETIC DIET, 100% INTAKE RECENT MEALS. STATES HE IS "DOING BETTER". WILL CONTINUE TO PROVIDE DIET, MONITOR PO INTAKE. RD FOLLOWING
[2019-02-22 12:50] VITALS: BP 123/70
[2019-02-22] MEDS ORDERED: TOPROL XL25 MG PO (13:39)
[2019-02-22] MEDS ORDERED: AUGMENTIN 875-11 TAB PO (13:40)
--- NOTE | 2019-02-22 15:15 | NUR ---
DC HOME AT THIS TIME VOICE UNDERSTANDING OF DC INSTRUCTIONS. AT BEDSIDE ALSO VOICE UNDERSTANDING OF INSTRUCTION. IV DC WITH TIP INTACT. STABLE UPON DEPARTURE.
--- NOTE | 2019-02-22 15:19 | MORECARE ---
CASE MANAGEMENT DISCHARGE SUMMARY PATIENT: TRAY COVARRUBIAS MICHELLE UNIT: [id number] ADM DATE: 02/18/19 AGE: 53 : 63 SEX: M ROOM/BED: D.2204 AUTHOR: DAGMAR ZHANG PHYSICIAN: REFERRING PHYSICIAN: MEERA CASTELLON MD DATE OF SERVICE: 02/22/19 Discharge Plan Patient Name: TRAY COVARRUBIAS Facility: [facility]:[place] : 1965 Planned Disposition: Home or Self Care Anticipated Discharge Date: Discharge Date: Expected LOS: Initial Reviewer: [email or web address] Initial Review Date: 02/18/2019 Generated: 02/22/19 4:19 pm Comments DCP- Discharge Planning Updated by [email or web address]: Ayanna Hennessy on 02/22/19 2:[address] PATIENT DISCHARGING HOME TODAY, NO NEEDS DCP- Discharge Planning Updated by [email or web address]: Ayanna Hennessy on 02/22/19 8:[address] Patient Name: TRAY COVARRUBIAS Admission Status: Elective Accout number: [id number] Admission Date: 02-18-2019 : 1965 Admission Diagnosis: Attending: MEERA CASTELLON Current LOS: 4 Anticipated DC Date: Planned Disposition: Home or Self Care Primary Insurance: [place] [employer] [facility] Discharge Planning Comments: CM met with patient to complete initial dc planning assessment. CM educated patient on the CM role and verbal consent given by patient to complete assessment. Patient lives at home with his where he is independent with his care. At discharge patient plans to return home and feels this is a safe discharge. CM discussed availability of home health, rehab services, and medical equipment. He does not want HH, he said he has been dealing with this for some time now. His will be his route driver home. Patient denied known discharge needs at this time. CM will continue to follow and will assist as needed with dc plans/needs Ep Tech: Ayanna Hennessy DCPIA - Discharge Planning Initial Assessment Updated by [email or web address]: Ayanna Hennessy on 02/22/19 9:22 am * Is the patient Alert and Oriented? Yes * How many steps to enter\exit or inside your home? * PCP [facility] [employer] [facility] * Pharmacy [facility] [address] * Preadmission Environment Home with Family * ADLs Independent * Equipment None * List name and contact numbers for known caregivers / representatives who currently or will assist patient after discharge: LYNETTE () [phone] * Verbal permission to speak to the caregivers and representatives has been obtained from the patient. N/A * Community resources currently utilized None * Additional services required to return to the preadmission environment? No * Can the patient safely return to the preadmission environment? Yes * Has this patient been hospitalized within the prior 30 days at any hospital? No Last DP export: 02/22/19 8:28 Patient Name: TRAY COVARRUBIAS Page [id number] at 1519 All edits/amendments must be made on the electronic document DICTATION DATE: 02/22/191518 SKIN DIVING TEACHER: AUREA 02/22/191518 RPT#: [id number] DC DATE: STATUS: ADM IN [facility] [address] [place] [address] END OF REPORT
--- NOTE | 2019-02-28 12:19 | MORECARE ---
CASE MANAGEMENT DISCHARGE SUMMARY PATIENT: TRAY COVARRUBIAS MICHELLE UNIT: [id number] ADM DATE: 02/18/19 AGE: 53 : 63 SEX: M ROOM/BED: D.2204 AUTHOR: DAGMAR ZHANG PHYSICIAN: REFERRING PHYSICIAN: MEERA CASTELLON MD DATE OF SERVICE: 02/28/19 Discharge Plan Patient Name: TRAY COVARRUBIAS Facility: [facility]:[place] : 1965 Planned Disposition: Home or Self Care Anticipated Discharge Date: Discharge Date: 02/22/2019 Expected LOS: Initial Reviewer: [email or web address] Initial Review Date: 02/18/2019 Generated: 02/28/19 1:19 pm Comments DCP- Discharge Planning Updated by [email or web address]: Ayanna Hennessy on 02/22/19 2:[address] PATIENT DISCHARGING HOME TODAY, NO NEEDS DCP- Discharge Planning Updated by [email or web address]: Ayanna Hennessy on 02/22/19 8:[address] Patient Name: TRAY COVARRUBIAS Admission Status: Elective Accout number: [id number] Admission Date: 02-18-2019 : 1965 Admission Diagnosis: Attending: MEERA CASTELLON Current LOS: 4 Anticipated DC Date: Planned Disposition: Home or Self Care Primary Insurance: [facility] Discharge Planning Comments: CM met with patient to complete initial dc planning assessment. CM educated patient on the CM role and verbal consent given by patient to complete assessment. Patient lives at home with his where he is independent with his care. At discharge patient plans to return home and feels this is a safe discharge. CM discussed availability of home health, rehab services, and medical equipment. He does not want HH, he said he has been dealing with this for some time now. His will be his [place] driver home. Patient denied known discharge needs at this time. CM will continue to follow and will assist as needed with dc plans/needs Machine Shop Specialist: Ayanna Hennessy DCPIA - Discharge Planning Initial Assessment Updated by [email or web address]: Ayanna Hennessy on 02/22/19 9:22 am * Is the patient Alert and Oriented? Yes * How many steps to enter\exit or inside your home? * PCP [facility] * Pharmacy [facility] [address] * Preadmission Environment Home with Family * ADLs Independent * Equipment None * List name and contact numbers for known caregivers / representatives who currently or will assist patient after discharge: LYNETTE () [phone] * Verbal permission to speak to the caregivers and representatives has been obtained from the patient. N/A * Community resources currently utilized None * Additional services required to return to the preadmission environment? No * Can the patient safely return to the preadmission environment? Yes * Has this patient been hospitalized within the prior 30 days at any hospital? No Last DP export: 02/22/19 2:19 Patient Name: TRAY COVARRUBIAS Page [id number] at 1219 All edits/amendments must be made on the electronic document DICTATION DATE: 02/28/191218 RN CASE MANAGER HOSPICE: AUREA 02/28/191218 RPT#: [id number] DC DATE:02/22/19 STATUS: DIS IN [facility] [address] [place] [address] END OF REPORT
== END 2019-02-22 15:15 | disposition home or self-care (01) | DRG 623 ==
LOC: D.MS 17:45
PROVIDERS: Family Medicine; ADMIT Family Medicine; ATTEND Family Medicine
PROC: 0JBR0ZZ Excision of Left Foot Subcutaneous Tissue and Fascia, Open Approach (ICD-10-PCS; principal; 2019-02-19)
PROC: 0JBQ0ZZ Excision of Right Foot Subcutaneous Tissue and Fascia, Open Approach (ICD-10-PCS; 2019-02-19)
DX: E11.621 Type 2 diabetes mellitus with foot ulcer (principal); Z68.41 Body mass index [BMI] 40.0-44.9, adult; L03.032 Cellulitis of left toe; L97.522 Non-pressure chronic ulcer of other part of left foot with fat layer exposed; E66.01 Morbid (severe) obesity due to excess calories; I10 Essential (primary) hypertension; M10.9 Gout, unspecified; L97.512 Non-pressure chronic ulcer of other part of right foot with fat layer exposed; E11.42 Type 2 diabetes mellitus with diabetic polyneuropathy